=== PATIENT | male | born 1935 | race Caucasian/White ===

== ENCOUNTER 2017-04-02 19:38 | Inpatient (IN) | payer OTHER ==
[~2017-04-02] VITALS: Ht 167.6 cm; Wt 86.3 kg
[~2017-04-02 19:38] MED LIST: ALEVE220 MG PO; ALLOPURINOL100 MG PO; ASPIRIN E.C.81 M1 PO; ATROVENT 00.5 MG/2.5 IH; AUGMENTIN875 MG PO; Advair HFA 115/21 IH; COUMADIN,JANTOVE5 MG PO; COUMADIN2 MG PO; Coumadin dosing per PO; DELTASONE10 MG PO; DOCUSATE SODIU100 MG PO; DOXYCYCLINE HY100 M3 PO; DUONEB 2.5-0.5 M3 ML AEROSOL; ENALAPRIL MALEA20 M1 PO; ENDOCET 5-3251 EACH PO; FINASTERIDE5 MG PO; FLOMAX0.4 MG PO; FUROSEMIDE20 MG PO; HYDROCHLOROTHIA25 MG PO; K-DUR10 ME2 PO; LEVAQUIN500 MG PO; LOSARTAN POTAS100 MG PO; LOVENOX100 MG/1 M SC; Lasix PO; Levaquin PO; METOPROLOL SUCC25 MG PO; METOPROLOL TAR100 MG PO; MONTELUKAST SOD10 MG PO; NORVASC10 MG PO; OMEPRAZOLE20 M2 PO; PROVENTIL,2.5 MG/0.5 IH; PriLOSEC PO; TAMSULOSIN HCL0.4 MG PO; TAZTIA XT180 M1 PO; THEO-DUR,THEOC200 MG PO; TOPROL XL100 MG PO; TOPROL XL50 MG PO; TYLENOL EXTRA500 MG PO; Vasotec PO; WARFARIN SODIUM2 MG PO; ZYLOPRIM100 MG PO
[2017-04-02 20:04] LABS: BASOPHIL (%) 1.1 % (0-1); BASOPHIL COUNT 0.1 K/uL (0-0.1); EOSINOPHIL (%) 1.9 % (0-5); EOSINOPHIL COUNT 0.1 K/uL (0-0.3); HEMATOCRIT 41.3 % (38.0-50.0); IMMATURE GRANULOCYTE (%) 0.3 % (0.0-0.7); LYMPHOCYTE (%) 17.3 % (15-42); LYMPHOCYTE COUNT 1.2 K/uL (1.0-2.8); MCH 29.5 PG (29.0-34.0); MCHC 31.5 G/DL (30.0-36.0); MCV 93.9 FL (86-99); MONOCYTE (%) 12.6 % (3-12); MONOCYTE COUNT 0.9 K/uL (0-0.8); NEUTROPHIL (%) 66.8 % (45-76); NEUTROPHIL COUNT 4.7 K/uL (1.8-6.4); PLATELET COUNT 199 K/uL (156-360); RBC DIS.WIDTH-CV 14.5 % (11.8-14.6); RBC DIS.WIDTH-SD 50.4 % (39-53)
[2017-04-02 20:15] LABS: ALBUMIN 3.9 g/dL (3.2-4.8); CHLORIDE 107 mEq/L (99-109); POTASSIUM 3.9 mEq/L (3.7-5.4)
[2017-04-02 20:16] LABS: SODIUM 142 mEq/L (136-147)
[2017-04-02 20:18] LABS: GLUCOSE 162 mg/dL (70-99); TOTAL PROTEIN 7.7 g/dL (6.4-8.3)
[2017-04-02 20:20] LABS: TOTAL BILIRUBIN 0.8 mg/dL (0.0-1.0)
[2017-04-02 20:21] LABS: ALKALINE PHOSPHATASE 138 IU/L (3-129); CREATININE 1.3 mg/dL (0.6-1.3); GFR ESTIMATE (CALCULATED) 56 mL/min/ (58.99-99999)
[2017-04-02 20:23] LABS: AST (GOT) 326 IU/L (2-34); UREA NITROGEN (BUN) 32 mg/dL (9-23)
[2017-04-02 20:24] LABS: ALT (GPT) 91 IU/L (3-49)
[2017-04-02 20:26] LABS: TROP-I INTERPRETATION NEGATIVE; TROPONIN-I 0.22 ng/mL (0.0-0.30)
[2017-04-02] MEDS ORDERED: DICLOFENAC SOD100 G1 TP (23:58)
[2017-04-02] MEDS ORDERED: LATANOPROST2.5 ML BOTH EYES (23:58)
[2017-04-03 01:13] LABS: TROP-I INTERPRETATION NEGATIVE; TROPONIN-I 0.26 ng/mL (0.0-0.30)
[2017-04-03 02:35] LABS: INTER. NORMALIZED RATIO 2.4
[2017-04-03 02:37] LABS: PTT 34.1 SEC (25-37)
[2017-04-03 05:48] LABS: HEMATOCRIT 41.7 % (38.0-50.0); HEMOGLOBIN 13.2 G/DL (12.5-16.6); MCH 29.8 PG (29.0-34.0); MCHC 31.7 G/DL (30.0-36.0); MCV 94.1 FL (86-99); PLATELET COUNT 201 K/uL (156-360); RBC DIS.WIDTH-CV 14.6 % (11.8-14.6); RBC DIS.WIDTH-SD 50.8 % (39-53); RED BLOOD COUNT 4.43 M/uL (4.00-5.50)
[2017-04-03 05:59] LABS: CHLORIDE 104 mEq/L (99-109); POTASSIUM 3.9 mEq/L (3.7-5.4); SODIUM 143 mEq/L (136-147)
[2017-04-03 06:01] LABS: GLUCOSE 121 mg/dL (70-99); TOTAL PROTEIN 7.9 g/dL (6.4-8.3)
[2017-04-03 06:04] LABS: ALKALINE PHOSPHATASE 138 IU/L (3-129)
[2017-04-03 06:05] LABS: GFR ESTIMATE (CALCULATED) > 59 mL/min/ (58.99-99999)
[2017-04-03 06:06] LABS: AST (GOT) 294 IU/L (2-34); DIRECT BILIRUBIN 0.6 mg/dL (0.0-0.3); UREA NITROGEN (BUN) 28 mg/dL (9-23)
[2017-04-03 06:08] LABS: ALT (GPT) 89 IU/L (3-49)
[2017-04-03 06:10] LABS: TROP-I INTERPRETATION NEGATIVE
[2017-04-03 11:13] LABS: TROP-I INTERPRETATION NEGATIVE; TROPONIN-I 0.14 ng/mL (0.0-0.30)
[2017-04-03 15:52] VITALS: BP 167/88
[2017-04-03 19:12] VITALS: BP 142/68
[2017-04-03 23:28] VITALS: BP 133/71
[2017-04-04 07:19] LABS: BASOPHIL (%) 0 % (0-1); EOSINOPHIL (%) 0 % (0-5); HEMATOCRIT 38.6 % (38.0-50.0); HEMOGLOBIN 12.3 G/DL (12.5-16.6); IMMATURE GRANULOCYTE (%) 0.4 % (0.0-0.7); LYMPHOCYTE (%) 8.1 % (15-42); LYMPHOCYTE COUNT 0.7 K/uL (1.0-2.8); MCH 30.1 PG (29.0-34.0); MCHC 31.9 G/DL (30.0-36.0); MCV 94.4 FL (86-99); MONOCYTE (%) 8.7 % (3-12); MONOCYTE COUNT 0.7 K/uL (0-0.8); NEUTROPHIL (%) 82.8 % (45-76); NEUTROPHIL COUNT 6.8 K/uL (1.8-6.4); PLATELET COUNT 188 K/uL (156-360); RBC DIS.WIDTH-CV 14.6 % (11.8-14.6); RED BLOOD COUNT 4.09 M/uL (4.00-5.50); WHITE BLOOD COUNT 8.3 K/uL (4.1-10.2)
[2017-04-04 07:38] LABS: CHLORIDE 100 MEQ/L (99-109); CREATININE 1.1 MG/DL (0.6-1.3); GFR ESTIMATE (CALCULATED) > 59 mL/min/ (58.99-99999); GLUCOSE 132 mg/dL (70-99); POTASSIUM 3.6 MEQ/L (3.7-5.4); SODIUM 143 MEQ/L (136-147); UREA NITROGEN (BUN) 39 mg/dL (9-23)
[2017-04-04 07:43] LABS: INTER. NORMALIZED RATIO 2.8
[2017-04-04 08:08] VITALS: BP 153/74
[2017-04-04 08:40] LABS: ALBUMIN 3.9 G/DL (3.2-4.8); ALKALINE PHOSPHATASE 102 IU/L (3-129); ALT (GPT) 70 IU/L (3-49); AST (GOT) 191 IU/L (2-34); DIRECT BILIRUBIN 0.3 mg/dL (0.0-0.3); TOTAL BILIRUBIN 0.9 MG/DL (0.0-1.0)
[2017-04-04 12:02] VITALS: BP 138/80
[2017-04-04 15:54] VITALS: BP 169/92
[2017-04-04 19:58] VITALS: BP 147/76
[2017-04-05 00:05] VITALS: BP 167/76
[2017-04-05 03:58] VITALS: BP 123/63
[2017-04-05 07:25] LABS: BASOPHIL (%) 0.3 % (0-1); EOSINOPHIL (%) 0.8 % (0-5); EOSINOPHIL COUNT 0.1 K/uL (0-0.3); HEMATOCRIT 39.5 % (38.0-50.0); HEMOGLOBIN 12.5 G/DL (12.5-16.6); IMMATURE GRANULOCYTE (%) 0.3 % (0.0-0.7); LYMPHOCYTE (%) 15.6 % (15-42); LYMPHOCYTE COUNT 1.4 K/uL (1.0-2.8); MCH 30.1 PG (29.0-34.0); MCHC 31.6 G/DL (30.0-36.0); MCV 95.2 FL (86-99); MONOCYTE (%) 10.4 % (3-12); MONOCYTE COUNT 0.9 K/uL (0-0.8); NEUTROPHIL (%) 72.6 % (45-76); NEUTROPHIL COUNT 6.5 K/uL (1.8-6.4); PLATELET COUNT 188 K/uL (156-360); RBC DIS.WIDTH-CV 14.6 % (11.8-14.6); RBC DIS.WIDTH-SD 50.9 % (39-53); RED BLOOD COUNT 4.15 M/uL (4.00-5.50)
[2017-04-05 07:45] LABS: INTER. NORMALIZED RATIO 2.8
[2017-04-05 07:47] LABS: ALBUMIN 3.8 G/DL (3.2-4.8); ALKALINE PHOSPHATASE 105 IU/L (3-129); ALT (GPT) 65 IU/L (3-49); AST (GOT) 140 IU/L (2-34); CHLORIDE 99 MEQ/L (99-109); CREATININE 1.1 MG/DL (0.6-1.3); GFR ESTIMATE (CALCULATED) > 59 mL/min/ (58.99-99999); GLUCOSE 99 mg/dL (70-99); POTASSIUM 3.6 MEQ/L (3.7-5.4); SODIUM 143 MEQ/L (136-147); TOTAL PROTEIN 6.8 G/DL (6.4-8.3); UREA NITROGEN (BUN) 48 mg/dL (9-23)
[2017-04-05 11:50] VITALS: BP 148/73
[2017-04-05 15:38] VITALS: BP 159/71
[2017-04-05] MEDS ORDERED: PROAIR RESPICL90 MCG IH (15:41)
[2017-04-05] MEDS ORDERED: FUROSEMIDE40 MG PO (15:41)
[2017-04-05] MEDS ORDERED: AZITHROMYCIN500 M1 PO (15:41)
[2017-04-05 15:47] VITALS: BP 154/82
== END 2017-04-05 17:34 | disposition home health service (06) | DRG 291 ==
LOC: EME → EDBD 19:38 → EME 19:38 → 5SOUTH 04-03 01:31 → EDOF 04-03 01:31 → ENRESERV 04-03 01:33 → 5SOUTH 04-03 15:33
PROVIDERS: Emergency Medicine Emergency Medical Services; Hospitalist; Internal Medicine
PROC: 5A09357 Assistance with Respiratory Ventilation, Less than 24 Consecutive Hours, Continuous Positive Airway Pressure (ICD-10-PCS; principal; 2017-04-03)
DX: I50.32 Chronic diastolic (congestive) heart failure (principal); J96.01 Acute respiratory failure with hypoxia; I48.2 Chronic atrial fibrillation; I27.20 Pulmonary hypertension, unspecified; I11.0 Hypertensive heart disease with heart failure; I71.2 Thoracic aortic aneurysm, without rupture; I45.10 Unspecified right bundle-branch block; G47.33 Obstructive sleep apnea (adult) (pediatric); M19.90 Unspecified osteoarthritis, unspecified site; N40.0 Benign prostatic hyperplasia without lower urinary tract symptoms; H40.9 Unspecified glaucoma; R74.0 Nonspecific elevation of levels of transaminase and lactic acid dehydrogenase [LDH]; K21.9 Gastro-esophageal reflux disease without esophagitis; I25.10 Atherosclerotic heart disease of native coronary artery without angina pectoris; J98.11 Atelectasis; Z96.642 Presence of left artificial hip joint; W19.XXXA Unspecified fall, initial encounter; Z79.01 Long term (current) use of anticoagulants; Z68.30 Body mass index [BMI] 30.0-30.9, adult; Z80.3 Family history of malignant neoplasm of breast
CPT/HCPCS: 71045; 71250; 76705; 80048; 80053; 80076; 81003; 83605; 83880; 84484; 85025; 85027; 85610; 85730; 87040; 87070; 87205; 87449; 87502; 93005; 93306; 94002; 94640; 94640 76; 94660; 94760; 94799; 97530 GO; 99202; 99281; 99285; J0295; J0456; J1940; J2930; J7050